=== PATIENT | female | born 1960 | race African-American/Black ===

== ENCOUNTER 2017-06-18 12:15 | Emergency (ER) | payer BC ==
[~2017-06-18] VITALS: Ht 160 cm; Wt 66.7 kg
[~2017-06-18 12:15] MED LIST: AMLO5TAB2 PO; SERT100T PO
[2017-06-18 12:23] VITALS: BP 159/77
--- NOTE | 2017-06-18 12:34 | PHYS DOC ---
Past Medical History Past Medical History: Anxiety, CAD, Depression, Hypertension Past Surgical History: Coronary Bypass Surgery Alcohol Use: Occasionally Drug Use: None Adult General Chief Complaint Chief Complaint: KNEE INJURY HPI HPI Patient is a 56 year old female presents emergency department stating that she was walking down the [place] her home last night when she fell. She states that she hit her right elbow but she is unsure how she injured the knee. She has pain on the lateral part of the knee. She is able to bend the knee and straighten the knee she denies any numbness or tingling into the foot peripheral pulses 2+ cap refill brisk less than 2 seconds. She is able to straighten and bend her right elbow with no difficulty. She does have tenderness noted on the elbow area. Peripheral pulses 2+ cap refill brisk less than 2 seconds. She states she did not take anything for the pain and discomfort. She also states that she has been falling quite a bit. She denies hitting her head. She denies any loss of consciousness. Denies any shortness of air difficulty breathing no chest pain. Patient denies any lightheadedness or dizziness she denies any vertigo. Review of Systems Review of Systems Constitutional: Denies fever or chills [] Eyes: Denies change in visual acuity, redness, or eye pain [] HENT: Denies nasal congestion or sore throat [] Respiratory: Denies cough or shortness of breath [] Cardiovascular: No additional information not addressed in HPI [] GI: Denies abdominal pain, nausea, vomiting, bloody stools or diarrhea [] : Denies dysuria or hematuria [] Musculoskeletal: Denies back pain. Complaint of right knee right elbow pain Integument: Denies rash or skin lesions [] Neurologic: Denies headache, focal weakness or sensory changes [] Endocrine: Denies polyuria or polydipsia [] Allergies Allergies Allergies Coded Allergies Type Severity Reaction Last Updated Verified Penicillins Allergy Intermediate swelling 01/31/15 No oxycodone Allergy Intermediate rash 01/31/15 No Physical Exam Physical Exam Constitutional: Well developed, well nourished, no acute distress, non-toxic appearance. [] HENT: Normocephalic, atraumatic, bilateral external ears normal, oropharynx moist, no oral exudates, nose normal. [] Eyes: PERRLA, EOMI, conjunctiva normal, no discharge. [] Neck: Normal range of motion, no tenderness, supple, no stridor. [] Cardiovascular:Heart rate regular rhythm, no murmur [] Lungs & Thorax: Bilateral breath sounds clear to auscultation [] Skin: Warm, dry, no erythema, no rash. [] Back: No tenderness[] Extremities: Right knee tenderness, right elbow tenderness, no cyanosis, no clubbing, ROM intact, no edema. No bruising or discoloration noted either areas slight edema may be notable. Peripheral pulses are 2+ cap refill brisk less than 2 seconds. Patient with full range of motion. Tenderness noted on the lateral part of the right knee. Tenderness was also noted on the elbow itself. Neurologic: Alert and oriented X 3, normal motor function, normal sensory function, no focal deficits noted. [] Psychologic: Affect normal, judgement normal, mood normal. [] Current Patient Data Vital Signs Vital Signs Date Time Temp Pulse Resp B/P (MAP) Pulse Ox O2 Delivery O2 Flow Rate FiO2 06/18/17 12:23 98.4 89 16 99 Room Air 98.4 Lab Values Laboratory Tests Test 06/18/17 13:02 White Blood Count 8.2 x10^3/uL (4.0-11.0) Red Blood Count 4.91 x10^6/uL (3.50-5.40) Hemoglobin 11.4 g/dL (12.0-15.5) L Hematocrit 35.8 % (36.0-47.0) L Mean Corpuscular Volume 73 fL (79-100) L Mean Corpuscular Hemoglobin 23 pg (25-35) L Mean Corpuscular Hemoglobin Concent 32 g/dL (31-37) Red Cell Distribution Width 14.1 % (11.5-14.5) Platelet Count 300 x10^3/uL (140-400) Neutrophils (%) (Auto) 60 % (31-73) Lymphocytes (%) (Auto) 30 % (24-48) Monocytes (%) (Auto) 8 % (0-9) Eosinophils (%) (Auto) 2 % (0-3) Basophils (%) (Auto) 1 % (0-3) Neutrophils # (Auto) 4.9 x10^3uL (1.8-7.7) Lymphocytes # (Auto) 2.4 x10^3/uL (1.0-4.8) Monocytes # (Auto) 0.6 x10^3/uL (0.0-1.1) Eosinophils # (Auto) 0.2 x10^3/uL (0.0-0.7) Basophils # (Auto) 0.0 x10^3/uL (0.0-0.2) Sodium Level 141 mmol/L (136-145) Potassium Level 3.7 mmol/L (3.5-5.1) Chloride Level 106 mmol/L (98-107) Carbon Dioxide Level 24 mmol/L (21-32) Anion Gap 11 (6-14) Blood Urea Nitrogen 12 mg/dL (7-20) Creatinine 0.8 mg/dL (0.6-1.0) Estimated GFR (Cockcroft-Gault) 89.1 BUN/Creatinine Ratio 15 (6-20) Glucose Level 100 mg/dL (70-99) H Calcium Level 9.1 mg/dL (8.5-10.1) Total Bilirubin 0.3 mg/dL (0.2-1.0) Aspartate Amino Transferase (AST) 31 U/L (15-37) Alanine Aminotransferase (ALT) 23 U/L (14-59) Alkaline Phosphatase 75 U/L (46-116) Total Protein 7.9 g/dL (6.4-8.2) Albumin 3.7 g/dL (3.4-5.0) Albumin/Globulin Ratio 0.9 (1.0-1.7) L Laboratory Tests 06/18/17 13:02 Laboratory Tests 06/18/17 13:02 EKG EKG EKG completed at 1253 heart rate 83 sinus rhythm noted no ectopy noted no STEMI noted per Dr. Hickman. [] Radiology/Procedures Radiology/Procedures [][facility] [address] [place], [place] [id number] IMAGING REPORT Signed PATIENT: CARISSA TORRES ACCOUNT: [id number] : 1960 LOCATION: ER AGE: 56 SEX: F EXAM [id number] STATUS: PRE ER ORD. PHYSICIAN: BENJAMIN GRAY TRANSMISSION SYSTEMS OPERATOR REASON: fell last night pain and discomfort PROCEDURE: ELBOW RIGHT 3V; KNEE RIGHT 4V Indications: Fell last night. Pain. 4 view right knee study: No acute fracture or dislocation or osteolytic process is seen. Accessory ossification center of the proximal right fibular epiphysis is seen which is a normal developmental variant. IMPRESSION: No acute fracture. Three-view study of the right elbow: No joint effusion is seen. No acute fracture or dislocation or osteolytic process is seen. No significant soft tissue swelling of the olecranon bursa is evident. IMPRESSION: No acute fracture. DICTATED and SIGNED BY: JOHN PARKS MD DATE: 06/18/17 3657 CC: BENJAMIN GRAY APRN ~ Course & Med Decision Making Course & Med Decision Making Pertinent Labs and Imaging studies reviewed. (See chart for details) CBC CMP, EKG normal. X-rays of the right knee for review was negative, x-rays of the elbow 3 views negative per radiology. Patient be encouraged to use Tylenol or ibuprofen for pain and discomfort. Ice packs on 20 minutes off 20 minutes several times a day. Elevation as much as possible. Patient was encouraged to follow-up with primary care physician in the next week. Signs symptoms to return back to emergency department as been provided. [] Dragon Disclaimer Dragon Disclaimer This electronic medical record was generated, in whole or in part, using a voice recognition dictation system. Departure Departure Impression: Primary Impression: Fall Additional Impressions: Contusion of right knee Contusion of right elbow Disposition: 01 HOME, SELF-CARE Condition: STABLE Patient Instructions: Elbow Contusion, [id number], Fall Prevention and Home Safety, [id number], Knee Pain, [id number] Additional Instructions: Your x-rays of your knee and your elbow were both negative for any bony abnormalities. Your CBC and chemistries were within normal limits. Your EKG was negative as well. Ice packs on 20 minutes off 20 minutes several times today. Elevation as much as possible. You may try an Enoc wrap to the elbow or the knee area to see if that will help for comfort. Follow-up with orthopedic in the next week. Return back to emergency prior signs symptoms of become worse. Problem Qualifiers BENJAMIN GRAY APRN Jun 18, 2017 12:34
--- NOTE | 2017-06-18 12:59 | RAD ---
Indications: Fell last night. Pain. 4 view right knee study: No acute fracture or dislocation or osteolytic process is seen. Accessory ossification center of the proximal right fibular epiphysis is seen which is a normal developmental variant. IMPRESSION: No acute fracture. Three-view study of the right elbow: No joint effusion is seen. No acute fracture or dislocation or osteolytic process is seen. No significant soft tissue swelling of the olecranon bursa is evident. IMPRESSION: No acute fracture.
[2017-06-18 13:08] LABS: BASO % 1 % (0-3); EOS % 2 % (0-3); HEMATOCRIT 35.8 % (36.0-47.0); HEMOGLOBIN 11.4 g/dL (12.0-15.5); LYMPH # 2.4 x10^3/uL (1.0-4.8); LYMPH % 30 % (24-48); MEAN CORPUSCULAR HEMOGLOBIN 23 pg (25-35); MEAN CORPUSCULAR HGB CONC 32 g/dL (31-37); MEAN CORPUSCULAR VOLUME 73 fL (79-100); MONO % 8 % (0-9); NEUT % 60 % (31-73); PLATELET COUNT 300 x10^3/uL (140-400); RED BLOOD COUNT 4.91 x10^6/uL (3.50-5.40); RED CELL DISTRIBUTION WIDTH 14.1 % (11.5-14.5); WHITE BLOOD COUNT 8.2 x10^3/uL (4.0-11.0)
[2017-06-18 13:19] LABS: CALCIUM 9.1 mg/dL (8.5-10.1); CREATININE 0.8 mg/dL (0.6-1.0); GFR 89.1; POTASSIUM 3.7 mmol/L (3.5-5.1)
[2017-06-18 13:24] LABS: ALBUMIN 3.7 g/dL (3.4-5.0); ALBUMIN/GLOBULIN RATIO 0.9 (1.0-1.7); TOTAL BILIRUBIN 0.3 mg/dL (0.2-1.0); TOTAL PROTEIN 7.9 g/dL (6.4-8.2)
[2017-06-18] MEDS ORDERED: IBUPROFEN 800 MG TABLET. PO ONE (13:45)
--- NOTE | 2017-06-19 09:18 | EKG ---
[facility] [address] [place] [address] Test Date: 2017-06-18 Test Time: 12:53:32 Pat Name: CARISSA TORRES Department: Room: Gender: F Duty Manager: : 1960 Requested By: BENJAMIN GRAY Order Number: [id number] Reading MD: Bang New Measurements Intervals [place] Rate: 88 P: 56 PA: 160 QRS: 58 QRSD: 80 T: 42 QT: 390 QTc: 476 Interpretive Statements SINUS RHYTHM T ABNORMALITY IN ANTEROSEPTAL LEADS PROLONGED QT NON SPECIFIC ST DEPRESSION Electronically Signed On 06-19-2017 15:08:33 CDT by Bang New
== END 2017-06-18 13:51 | disposition home or self-care (01) ==
LOC: ER 12:15
DX: S80.01XA Contusion of right knee, initial encounter (principal); S50.01XA Contusion of right elbow, initial encounter; Z88.0 Allergy status to penicillin; Z88.5 Allergy status to narcotic agent; I10 Essential (primary) hypertension; I25.10 Atherosclerotic heart disease of native coronary artery without angina pectoris; Y99.8 Other external cause status; W19.XXXA Unspecified fall, initial encounter; Y93.01 Activity, walking, marching and hiking; Y92.008 Other place in unspecified non-institutional (private) residence as the place of occurrence of the external cause
CPT/HCPCS: 36415; 73080; 73564; 80053; 85027; 93005; 99285

== ENCOUNTER 2022-02-16 11:10 | Emergency (ER) | payer BC ==
[~2022-02-16] VITALS: Ht 160 cm; Wt 67.9 kg
[~2022-02-16 11:10] MED LIST changes: +AMLO-186 PO; -AMLO5TAB2 PO
[2022-02-16 11:55] VITALS: BP 156/77
[2022-02-16] MEDS ORDERED: IBUP-1007 PO (12:44)
[2022-02-16] MEDS ORDERED: CYCL5TAB PO (12:44)
--- NOTE | 2022-02-16 12:45 | PHYS DOC ---
Past Medical History Past Medical History: Anxiety, CAD, Depression, Hypertension Past Surgical History: Coronary Bypass Surgery, Hysterectomy Additional Past Surgical Histo: LEFT ANKLE Smoking Status: Never Smoker Alcohol Use: Occasionally Drug Use: None Adult General Chief Complaint Chief Complaint: LOWER BACK PAIN OR INJURY HPI HPI Patient is a 61 year old female with pain in the right buttock radiating down the lateral aspect of the right leg. Patient states this started at work. 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 No recent trauma. No fever. No bladder incontinence bowel incontinence numbness or weakness. Review of Systems Review of Systems Constitutional: Denies fever Eyes: Denies change in visual acuity or eye pain HENT: Denies sore throat Respiratory: Denies shortness of breath Cardiovascular: Denies chest pain GI: Denies abd pain : Denies dysuria Musculoskeletal: Denies back or extremity injury Integument: Denies rash or skin lesions Neurologic: Denies headache, focal weakness or sensory changes All other systems were reviewed and found to be within normal limits, except as documented in this note. Allergies Allergies Allergies Coded Allergies Type Severity Reaction Last Updated Verified Penicillins Allergy Intermediate swelling 01/31/15 No oxycodone Allergy Intermediate rash 01/31/15 No Physical Exam Physical Exam Constitutional: Well developed, well nourished, no acute distress, non-toxic appearance. HENT: Normocephalic, atraumatic, bilateral external ears normal, mucosa moist, nose normal. Eyes: EOMI, conjunctiva normal, no discharge. Neck: Normal range of motion, supple, no stridor, no meningeal signs. Cardiovascular: Regular rate and rhythm Lungs & Thorax: Bilateral breath sounds clear to auscultation Abdomen: Soft, no tenderness or obvious masses Skin: Warm, dry, no erythema, no rash. Extremities: No tenderness, no cyanosis, no clubbing, ROM intact, no edema. Neurologic: Alert and oriented, normal motor function, normal sensory function, no focal deficits noted. Psychologic: Affect normal, judgement normal, mood normal. Current Patient Data Vital Signs Vital Signs Date Time Temp Pulse Resp B/P (MAP) Pulse Ox O2 Delivery O2 Flow Rate FiO2 02/16/22 11:55 98.0 94 20 156/77 (103) 97 Room Air 98.0 EKG EKG [] Radiology/Procedures Radiology/Procedures [] Course & Med Decision Making Course & Med Decision Making Pertinent Labs and Imaging studies reviewed. (See chart for details) [] This is a 61-year-old female with a lumbar radiculopathy. We will start her on Motrin and Flexeril and have her avoid lifting and bending for the next 3 days. Follow-up with her primary care physician, she is stable for discharge. Dragon Disclaimer Dragon Disclaimer This electronic medical record was generated, in whole or in part, using a voice recognition dictation system. Departure Departure Impression: Primary Impression: Lumbar radiculopathy Additional Impression: Sciatica Disposition: HOME / SELF CARE / HOMELESS Condition: GOOD Referrals: UNKNOWN PCP NAME (PCP) Patient Instructions: Sciatica Scripts Ibuprofen (IBUPROFEN) 600 Mg Tablet 600 MG PO PRN Q6HRS PRN for PAIN, #20 TAB take with food or milk Prov: TRENT BOBBY MD 02/16/22 Cyclobenzaprine Hcl (CYCLOBENZAPRINE HCL) 5 Mg Tablet 5 MG PO PRN TID PRN for PAIN, #15 TAB Prov: TRENT BOBBY MD 02/16/22 Problem Qualifiers TRENT BOBBY MD Feb 16, 2022 12:45
== END 2022-02-16 12:52 | disposition home or self-care (01) ==
LOC: ER 11:10
DX: M54.16 Radiculopathy, lumbar region (principal); M54.41 Lumbago with sciatica, right side; I10 Essential (primary) hypertension; I25.10 Atherosclerotic heart disease of native coronary artery without angina pectoris; Z95.1 Presence of aortocoronary bypass graft; Z90.710 Acquired absence of both cervix and uterus; Z88.0 Allergy status to penicillin; Z88.5 Allergy status to narcotic agent
CPT/HCPCS: 99283